=== PATIENT | female | born 1975 | race Caucasian/White ===

== ENCOUNTER 2020-03-31 11:01 | Day surgery (SDC) | payer OTHER ==
[~2020-03-31 11:01] MED LIST: Midazolam 1 MG/ML 2 ML SDV ONE; Propofol 200 MG/20 ML SDV ONE; fentaNYL 100 MCG/2 ML SDV ONE
[2020-03-31] MEDS ORDERED: Clindamycin in 0.9 % Sod Chlor 600 MG/50 ML BAG IV ONE (11:02)
[2020-03-31] MEDS ORDERED: Sodium Chloride 0.9% 10 ML Syringe FLUSH PRN (11:30)
[2020-03-31] MEDS: Lactated Ringers 1,000 ML IV SCH (11:50)
[2020-03-31] MEDS ORDERED: Midazolam 1 MG/ML 2 ML SDV ONE ×2 (12:42→12:45)
[2020-03-31] MEDS ORDERED: Propofol 200 MG/20 ML SDV ONE (12:45)
[2020-03-31] MEDS ORDERED: fentaNYL 100 MCG/2 ML SDV ONE (12:45)
[2020-03-31] MEDS: Bupivacaine 0.5% 10 ML SDV INJECT ONE (12:59)
--- NOTE | 2020-03-31 13:17 | PCM.OPNOTE ---
- General Post-Op/Procedure Note Date of Surgery/Procedure: 03/31/20 Operative Procedure(s): right ctr Pre Op Diagnosis: r cts Post-Op Diagnosis: Same Anesthesia Technique: Local, MAC Primary Surgeon: Rojelio Sharma EBL in mLs: 5 Complications: None Condition: Good
--- NOTE | 2020-03-31 14:23 | OR ---
Date of Procedure: 03/31/2020 PREOPERATIVE DIAGNOSIS: Right carpal tunnel syndrome. POSTOPERATIVE DIAGNOSIS: Right carpal tunnel syndrome. PROCEDURE: Right carpal tunnel release. ANESTHESIA: MAC local. FLUIDS: Lactated Ringer's solution. ESTIMATED BLOOD LOSS: 0. COMPLICATIONS: None. SPECIMENS: None. DISCHARGE DISPOSITION: Stable to PACU. HISTORY AND INDICATIONS FOR THE PROCEDURE: The patient is well known to me. She was seen in the clinic. Preoperative EMG confirmed the above mentioned diagnosis. Risks and goals of procedure were explained to the patient and informed consent was obtained. DESCRIPTION OF PROCEDURE: The patient was seen preoperatively by myself and anesthesia staff in the preoperative holding area where the operative site was marked. She was brought to the operating suite by the anesthesia staff, where conscious sedation was administered. A well-padded tourniquet was placed on the right forearm. The right upper extremity was then prepped and draped in a sterile manner. Time out was called identifying the correct patient and correct procedure and the correct site and antibiotics had been given at appropriate period of time. The right upper extremity was then exsanguinated. Tourniquet was raised to 250 mmHg and taken down after closure. An incision was made proximal to Reaves's cardinal line in line with the radial border of the fourth digit extending approximately 2 cm. Minimal bleeding was encountered. I used #15 blade to go down to the transverse carpal ligament. I then inserted a self-retaining retractor, then incised transverse carpal ligament, and then under direct visualization, using Ragnell went above and below the deep palmar fascia proximal and distal to the transverse carpal ligament. This was then divided using the Metzenbaum. After inspecting to ensure that we had done a full carpal tunnel release, we then irrigated and then placed a few drops of dexamethasone over the nerve. I then closed with horizontal mattress interrupted sutures which were 3-0 Prolene followed by Betadine-soaked Adaptic, sponges, and Albert wrap. The patient allowed to wake from conscious sedation and taken to the PACU in stable condition. Prior to incision, I did infiltrate with local anesthetic which was 0.5% lidocaine without epinephrine. BILL Sharma DO, DO /[id number]
== END 2020-03-31 14:05 | disposition home or self-care (01) ==
LOC: LL.SDS 11:01
PROVIDERS: ATTEND Orthopaedic Surgery
DX: G56.01 Carpal tunnel syndrome, right upper limb (principal); E78.5 Hyperlipidemia, unspecified; E03.9 Hypothyroidism, unspecified; Z79.899 Other long term (current) drug therapy; Z87.891 Personal history of nicotine dependence; Z88.0 Allergy status to penicillin; Z91.048 Other nonmedicinal substance allergy status; Z79.890 Hormone replacement therapy
CPT/HCPCS: 64721; J2250; J2704; J3010; J3490; J7120